=== PATIENT | female | born 1975 | race Caucasian/White ===

== ENCOUNTER → 2016-08-31 | Day surgery (SDC) | payer OTHER ==
[~2016-08-31] VITALS: Ht 170.2 cm; Wt 82.0 kg
[~2016-08-31] MED LIST: AMLO10 PO; AMLO10TA2 PO; CARV25TA PO; CORE25TA PO; DILA4TAB2 PO; DO NOT ADM ANY ANTICOAGULANT DRUGS XX PRN; GEOD80CA PO; HALO5TAB PO; IBUP200T2 PO; INSULIN HUMAN REGULAR 1,000 UNITS/10 ML VIAL SQ PRN; LACTATED RINGER'S 1000 ML INJ 1,000 ML IV ONE; LACTATED RINGER'S 1000 ML IV SCH; METOPROLOL TARTRATE 25 MG TAB PO PRN; MIDAZOLAM HCL 2 MG/2 ML VIAL ONE; ONDANSETRON HCL 4 MG/2 ML VIAL IV PUSH ONE; ONDANSETRON HCL 4 MG/2 ML VIAL IV PUSH PRN; PERC5TAB12 PO; PHENYLEPH/NS 1000 MCG/10 ML SYR IV ONE; PROPOFOL 200 MG/20 ML AMP IV ONE; SODIUM CHLORID 0.9% 500 ML IV SCH; TRIH2 PO; ePHEDrine/NS 50 MG/5 ML SYR IV ONE; oxyCODONE/ACETAMINOPHEN 5 MG/325 MG TAB PO PRN
[2016-08-31 10:03] VITALS: BP 107/79; PULSE 79; RESP 16; TEMP 98.2; O2SAT 98
[2016-08-31 10:17] LABS: AUTOMATED NEUTROPHIL # 9.3 TH/MM3 (1.8-7.7); BASOPHIL # 0.1 TH/MM3 (0-0.2); BASOPHIL % 0.7 % (0.0-2.0); EOSINOPHIL # 0.4 TH/MM3 (0-0.4); EOSINOPHIL % 3.1 % (0.0-4.0); HEMATOCRIT 38.6 % (35.0-46.0); HEMO FLAGS DIFF FINAL; LYMPHOCYTE # 2.3 TH/MM3 (1.0-4.8); MEAN CELL VOLUME 85.7 FL (80.0-100.0); MEAN CORPUSCULAR HEMOGLOBIN 29.7 PG (27.0-34.0); MEAN CORPUSCULAR HGB CONC 34.7 % (32.0-36.0); MONO % 5.3 % (0.0-8.0); NEUT % 72.9 % (16.0-70.0); PLATELET COUNT 316 TH/MM3 (150-450); RED BLOOD COUNT 4.51 MIL/MM3 (4.00-5.30); RED CELL DISTRIBUTION WIDTH 13.9 % (11.6-17.2); WHITE BLOOD COUNT 12.8 TH/MM3 (4.0-11.0)
--- NOTE | 2016-08-31 10:26 | RADRPT ---
EXAM DATE/TIME: 08/31/2016 09:36 [place] COMPARISON: CT ABDOMEN & PELVIS W/O CONTRAST, July 11, 2016, 12:32. INDICATIONS : Pre op left lithotripsy. MEDICAL HISTORY : Hypertension. Renal calculi. SURGICAL HISTORY : None. ENCOUNTER: Initial ACUITY: 1 day PAIN SCORE: 0/10 LOCATION: Left flank FINDINGS: A 14 mm oblong calcific density overlies the left kidney. No other suspicious calcific densities are identified. Intestinal gas pattern is nonspecific and benign. The regional skeleton is intact. CONCLUSION: Left kidney stone Obie Eaton MD on August 31, 2016 at 10:22 Board Certified Radiologist. This report was verified electronically.
--- NOTE | 2016-08-31 12:51 | MP ---
cc: YANG LOPEZ MD DATE OF SURGERY: August 31, 2016 INDICATIONS FOR PROCEDURE Case of a pleasant 41-year-old female with approximately 1 and 1/2 cm left lower pole renal calculus who presents today to undergo extracorporeal shockwave lithotripsy. PREOPERATIVE DIAGNOSIS Left renal calculus. POSTOPERATIVE DIAGNOSIS Left renal calculus. ATTENDING SURGEON Dr. Lopez. ANESTHESIA General. OPERATIVE PROCEDURE IN DETAIL The patient was brought to the operating room suite and placed supine on the OR table. The patient was next placed under general anesthesia. After an appropriate time-out was undertaken the patient had a left lower pole renal calculus localized with fluoroscopy. She subsequently received extracorporeal shockwave lithotripsy using the [employer] Piezolith 3000 device. The patient ended up receiving a total of 3000 shocks with a maximum power level setting of 20. At the conclusion of the procedure the stone did break up well. The patient tolerated the procedure without complications and was transferred to the PACU in satisfactory condition. Yang Lopez MD BPS/TLL /12:39 PM /12:44 PM
[2016-08-31 13:15] VITALS: BP 106/65; PULSE 68; RESP 18; TEMP 97.8; O2SAT 97
== END | disposition home or self-care (01) ==
LOC: HSDC 09:16
PROVIDERS: ATTEND Urology
DX: N20.0 Calculus of kidney (principal); I10 Essential (primary) hypertension; Z01.818 Encounter for other preprocedural examination
CPT/HCPCS: 00872; 50590; 74000; 85025; J2250; J2370; J2405; J3010; J7120

== ENCOUNTER 2017-01-15 12:00 | Emergency (ER) | payer OTHER ==
[~2017-01-15] VITALS: Ht 162.6 cm; Wt 60.0 kg
[~2017-01-15 12:00] MED LIST changes: -AMLO10 PO; -CARV25TA PO; -DILA4TAB2 PO; -DO NOT ADM ANY ANTICOAGULANT DRUGS XX PRN; -GEOD80CA PO; -HALO5TAB PO; -INSULIN HUMAN REGULAR 1,000 UNITS/10 ML VIAL SQ PRN; -LACTATED RINGER'S 1000 ML INJ 1,000 ML IV ONE; -LACTATED RINGER'S 1000 ML IV SCH; -METOPROLOL TARTRATE 25 MG TAB PO PRN; -MIDAZOLAM HCL 2 MG/2 ML VIAL ONE; -ONDANSETRON HCL 4 MG/2 ML VIAL IV PUSH ONE; -ONDANSETRON HCL 4 MG/2 ML VIAL IV PUSH PRN; -PERC5TAB12 PO; -PHENYLEPH/NS 1000 MCG/10 ML SYR IV ONE; -PROPOFOL 200 MG/20 ML AMP IV ONE; -SODIUM CHLORID 0.9% 500 ML IV SCH; -TRIH2 PO; -ePHEDrine/NS 50 MG/5 ML SYR IV ONE; -oxyCODONE/ACETAMINOPHEN 5 MG/325 MG TAB PO PRN
[2017-01-15 12:05] VITALS: BP 170/92; PULSE 102; RESP 22
[2017-01-15 12:40] LABS: AUTOMATED NEUTROPHIL # 8.5 TH/MM3 (1.8-7.7); BASOPHIL # 0.1 TH/MM3 (0-0.2); BASOPHIL % 0.9 % (0.0-2.0); EOSINOPHIL # 0.2 TH/MM3 (0-0.4); EOSINOPHIL % 1.2 % (0.0-4.0); HEMO FLAGS DIFF FINAL; LYMPH % 24.2 % (9.0-44.0); LYMPHOCYTE # 3.1 TH/MM3 (1.0-4.8); MEAN CELL VOLUME 85.9 FL (80.0-100.0); MEAN CORPUSCULAR HEMOGLOBIN 29.3 PG (27.0-34.0); MEAN CORPUSCULAR HGB CONC 34.1 % (32.0-36.0); MONO % 7.7 % (0.0-8.0); PLATELET COUNT 326 TH/MM3 (150-450); RED BLOOD COUNT 4.65 MIL/MM3 (4.00-5.30); RED CELL DISTRIBUTION WIDTH 13.7 % (11.6-17.2); WHITE BLOOD COUNT 12.9 TH/MM3 (4.0-11.0)
[2017-01-15] MEDS ORDERED: HALOPERIDOL LACTATE 5 MG/ML AMP IM ONE (12:45)
[2017-01-15] MEDS ORDERED: LORazepam 2 MG/ML VIAL IM ONE (12:45)
[2017-01-15 12:51] LABS: AMPHETAMINE, URINE NEG (NEG); BARBITURATES, URINE NEG (NEG); COCAINE, URINE NEG (NEG)
[2017-01-15 12:58] LABS: ALT (GPT) 24 U/L (10-53); ANION GAP 12 MEQ/L (5-15); AST (GOT) 23 U/L (15-37); BICARBONATE 22.7 MEQ/L (21.0-32.0); BLOOD UREA NITROGEN 17 MG/DL (7-18); CHLORIDE 108 MEQ/L (98-107); GLOMERULAR FILTRATION RATE 103 ML/MIN (>89); POTASSIUM 3.4 MEQ/L (3.5-5.1); SODIUM (NA) 143 MEQ/L (136-145)
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
[2017-01-15 13:00] LABS: ALKALINE PHOSPHATASE 73 U/L (45-117); TOTAL BILIRUBIN ADULT 0.7 MG/DL (0.2-1.0)
[2017-01-15 14:00] VITALS: BP 164/74; PULSE 92; RESP 18; O2SAT 96
[2017-01-15 14:55] VITALS: BP 120/86; PULSE 86; RESP 18; TEMP 97.9; O2SAT 96
[2017-01-15] MEDS ORDERED: diphenhydrAMINE HCL 50 MG CAP PO ONE (15:30)
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
[2017-01-15] MEDS ORDERED: OLANZapine 10 MG TAB PO ONE (15:45)
[2017-01-15] MEDS ORDERED: LORazepam 2 MG TAB PO ONE (17:00)
[2017-01-15 22:07] VITALS: BP 129/75; PULSE 95; RESP 17; O2SAT 95
[2017-01-15] MEDS ORDERED: diphenhydrAMINE HCL 50 MG/ML VIAL IM ONE (22:30)
[2017-01-16 00:16] LABS: BETA HCG QUANT LESS THAN 1 MIU/ML (0-5)
[2017-01-17] MEDS ORDERED: AMLO10TA2 PO (17:03)
[2017-01-17] MEDS ORDERED: IBUP200T2 PO (17:04)
[2017-01-17] MEDS ORDERED: CARV25TA PO (17:04)
== END 2017-01-16 00:35 ==
LOC: NEDAMB 12:00 → NEPJ 01-16 00:35
DX: F29 Unspecified psychosis not due to a substance or known physiological condition (principal); I10 Essential (primary) hypertension; F17.200 Nicotine dependence, unspecified, uncomplicated; Z86.59 Personal history of other mental and behavioral disorders; Z87.442 Personal history of urinary calculi
CPT/HCPCS: 80053; 80307; 84702; 85025; 96372; 99285; J1200; J1630; J2060; Q0163

== ENCOUNTER 2017-01-17 13:10 | Inpatient (IN) | payer OTHER ==
[~2017-01-17] VITALS: Ht 170.2 cm; Wt 77.0 kg
[2017-01-17 13:18] VITALS: BP 129/69; PULSE 88; RESP 24; TEMP 97.8; O2SAT 100
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
[2017-01-17] MEDS ORDERED: LORazepam 1 MG TAB PO ONE (14:00)
[2017-01-17 14:04] LABS: AUTOMATED NEUTROPHIL # 9.1 TH/MM3 (1.8-7.7); BASOPHIL # 0.1 TH/MM3 (0-0.2); BASOPHIL % 0.6 % (0.0-2.0); EOSINOPHIL # 0.3 TH/MM3 (0-0.4); HEMATOCRIT 37.5 % (35.0-46.0); HEMO FLAGS DIFF FINAL; LYMPH % 22.3 % (9.0-44.0); MEAN CELL VOLUME 85.6 FL (80.0-100.0); MEAN CORPUSCULAR HEMOGLOBIN 29.1 PG (27.0-34.0); MONO % 7.8 % (0.0-8.0); NEUT % 67.3 % (16.0-70.0); PLATELET COUNT 295 TH/MM3 (150-450); RED BLOOD COUNT 4.38 MIL/MM3 (4.00-5.30); RED CELL DISTRIBUTION WIDTH 13.9 % (11.6-17.2); WHITE BLOOD COUNT 13.6 TH/MM3 (4.0-11.0)
[2017-01-17 14:25] LABS: AMPHETAMINE, URINE NEG (NEG); BARBITURATES, URINE NEG (NEG); COCAINE, URINE NEG (NEG)
[2017-01-17 14:25] LABS: ALT (GPT) 34 U/L (10-53); ANION GAP 10 MEQ/L (5-15); AST (GOT) 48 U/L (15-37); BICARBONATE 23.7 MEQ/L (21.0-32.0); BLOOD UREA NITROGEN 17 MG/DL (7-18); CHLORIDE 108 MEQ/L (98-107); GLOMERULAR FILTRATION RATE 97 ML/MIN (>89); POTASSIUM 3.6 MEQ/L (3.5-5.1); SODIUM (NA) 142 MEQ/L (136-145)
[2017-01-17] MEDS ORDERED: HALOPERIDOL LACTATE 5 MG/ML AMP IM ONE (14:30)
[2017-01-17] MEDS ORDERED: NICOTINE 21 MG/24 HR PATCH T-DERMAL ONE (14:30)
[2017-01-17 14:33] LABS: ALKALINE PHOSPHATASE 70 U/L (45-117); TOTAL BILIRUBIN ADULT 0.7 MG/DL (0.2-1.0)
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
[2017-01-17] MEDS ORDERED: LORazepam 2 MG/ML VIAL ONE (15:56)
[2017-01-17] MEDS ORDERED: LORazepam 2 MG/ML VIAL IM ONE (16:15)
[2017-01-17 16:52] VITALS: BP 101/58; PULSE 83; RESP 18; O2SAT 98
[2017-01-17] MEDS ORDERED: AMLO10TA2 PO (17:03)
[2017-01-17] MEDS ORDERED: CARV25TA PO (17:04)
[2017-01-17] MEDS ORDERED: IBUP200T2 PO (17:04)
[2017-01-17] MEDS ORDERED: BENZTROPINE MESYLATE 1 MG TAB PO PRN (21:00)
[2017-01-17] MEDS ORDERED: BENZTROPINE MESYLATE 2 MG/2 ML VIAL IM PRN (21:00)
[2017-01-17] MEDS: CARVEDILOL 12.5 MG TAB PO SCH (21:00)
[2017-01-17 22:31] VITALS: BP 181/84; PULSE 93; RESP 18; O2SAT 98
[2017-01-17] MEDS: NICOTINE 21 MG/24 HR PATCH T-DERMAL SCH (22:34)
[2017-01-17] MEDS: diphenhydrAMINE HCL 50 MG CAP PO PRN (22:51)
[2017-01-17] MEDS: LORazepam 2 MG/ML VIAL IM PRN (22:51)
[2017-01-17 23:26] VITALS: BP 111/67; PULSE 89; RESP 18; TEMP 98.6; O2SAT 96
[2017-01-18] MEDS: LORazepam 1 MG TAB PO PRN ×2 (04:33→11:09)
[2017-01-18 05:59] VITALS: BP 131/81; PULSE 81; RESP 17; TEMP 98.1; O2SAT 99
[2017-01-18 08:36] LABS: BASOPHIL # 0.1 TH/MM3 (0-0.2); BASOPHIL % 1.1 % (0.0-2.0); EOSINOPHIL # 0.3 TH/MM3 (0-0.4); HEMATOCRIT 36.9 % (35.0-46.0); HEMO FLAGS DIFF FINAL; LYMPH % 24.1 % (9.0-44.0); LYMPHOCYTE # 2.7 TH/MM3 (1.0-4.8); MEAN CELL VOLUME 86.1 FL (80.0-100.0); MEAN CORPUSCULAR HEMOGLOBIN 29.4 PG (27.0-34.0); MEAN CORPUSCULAR HGB CONC 34.2 % (32.0-36.0); MONO % 8.4 % (0.0-8.0); NEUT % 63.4 % (16.0-70.0); PLATELET COUNT 300 TH/MM3 (150-450); RED BLOOD COUNT 4.29 MIL/MM3 (4.00-5.30); RED CELL DISTRIBUTION WIDTH 13.4 % (11.6-17.2); WHITE BLOOD COUNT 11.1 TH/MM3 (4.0-11.0)
[2017-01-18] MEDS: CARVEDILOL 12.5 MG TAB PO SCH ×2 (09:00→21:00)
[2017-01-18] MEDS: REMOVE OLD PATCH T-DERMAL SCH (09:00)
[2017-01-18] MEDS: NICOTINE 21 MG/24 HR PATCH T-DERMAL SCH (10:14)
[2017-01-18 10:18] LABS: ANION GAP 7 MEQ/L (5-15); AST (GOT) 40 U/L (15-37); BICARBONATE 25.1 MEQ/L (21.0-32.0); BLOOD UREA NITROGEN 17 MG/DL (7-18); CHLORIDE 106 MEQ/L (98-107); GLOMERULAR FILTRATION RATE 109 ML/MIN (>89); POTASSIUM 3.6 MEQ/L (3.5-5.1); SODIUM (NA) 138 MEQ/L (136-145)
[2017-01-18 10:30] LABS: ALKALINE PHOSPHATASE 64 U/L (45-117); ALT (GPT) 34 U/L (10-53); LDL CHOLESTEROL 103 MG/DL (0-99); TOTAL BILIRUBIN ADULT 0.5 MG/DL (0.2-1.0)
[2017-01-18] MEDS ORDERED: OLANZapine ODT 5 MG TAB PO ONE (11:00)
[2017-01-18] MEDS ORDERED: OLANZapine IM 10 MG VIAL IM PRN (11:00)
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
[2017-01-18] MEDS ORDERED: LORazepam 2 MG/ML VIAL IM ONE (14:00)
[2017-01-18] MEDS ORDERED: diphenhydrAMINE HCL 50 MG/ML VIAL IM ONE (14:00)
[2017-01-18] MEDS ORDERED: HALOPERIDOL LACTATE 5 MG/ML AMP IM STA (14:02)
[2017-01-18 15:00] VITALS: BP 120/75; PULSE 87; RESP 17; O2SAT 97
[2017-01-18 15:53] LABS: HEMOGLOBIN A1a 0.9 %; HEMOGLOBIN A1b 1.4 %; HEMOGLOBIN Ao 86.3 %; HEMOGLOBIN LA1C 1.9 %; HEMOGLOBIN P3 5.1 %
[2017-01-18 17:20] VITALS: BP 117/73; PULSE 75; RESP 14; O2SAT 99
[2017-01-18 18:08] VITALS: BP 145/78; PULSE 75; RESP 18; TEMP 98.5; O2SAT 99
[2017-01-18] MEDS: OLANZapine ODT 10 MG TAB PO SCH (21:00)
[2017-01-19] MEDS: diphenhydrAMINE HCL 50 MG CAP PO PRN ×2 (01:30→20:10)
[2017-01-19] MEDS: LORazepam 1 MG TAB PO PRN ×4 (01:30→20:10)
[2017-01-19] MEDS: OLANZapine ODT 10 MG TAB PO SCH ×2 (01:30→20:09)
[2017-01-19] MEDS: ACETAMINOPHEN 325 MG TAB PO PRN ×3 (01:30→20:10)
[2017-01-19] MEDS: MAGNESIUM HYDROXIDE SUSP 30 ML CUP PO PRN (04:57)
[2017-01-19 06:04] VITALS: BP 119/75; PULSE 78; RESP 17; TEMP 98.1; O2SAT 98
[2017-01-19] MEDS: NICOTINE 21 MG/24 HR PATCH T-DERMAL SCH (08:20)
[2017-01-19] MEDS: CARVEDILOL 12.5 MG TAB PO SCH ×2 (08:20→20:10)
[2017-01-19] MEDS: REMOVE OLD PATCH T-DERMAL SCH (09:00)
--- NOTE | 2017-01-19 13:11 | HHI.PYPN ---
Subjective Remarks Patient seen and examined with nurse, Akila. Chart reviewed. Patient required Haldol, Ativan and Benadryl ETO yesterday for agitation. Case discussed with nursing staff who reports that the patient is attention seeking. On my examination today, the patient presents as somewhat silly, disinhibited and intrusive. Affect is labile. She is quite discharge focused. She is accusatory and continues to catastrophize. She does not think that she has a mental illness in need of treatment. Claims that medications received yesterday made her "hallucinate" but otherwise reports no side effects from medications. No physical complaints at this time. Review of Systems ROS Limitations: Poor Historian Except as stated in HPI: all other systems reviewed are Neg Objective Alert: Yes [place]: Person, Place, Date (approx) Mood: Anxious Affect: Labile Memory Intact: Comment (Not formally assessed) Hallucinations: Other (Claims AVH overnight, none now) Delusions: Yes Delusion Type: Grandiose Suicidal: Ideation (No SI) Homicidal: Ideation (No HI) Insight/Judgment Poor Remarks No motoric abnormalities noted. Speech somewhat pressured, rambling. TP perhaps a little more linear today. Labs Labs reviewed. Vitals/IOs Vital Signs Date Time Temp Pulse Resp B/P Pulse Ox O2 Delivery O2 Flow Rate FiO2 01/19/17 06:04 98.1 78 17 119/75 98 01/17/17 22:31 Room Air Assessment & Plan Problem List: (1) Bipolar disorder ICD Code: F31.9 Assessment & Plan Continue Zyprexa 10mg qHS with plans to titrate to 15mg tomorrow night. To consider addition of a mood stabilizer for acute stabilization. Continue to monitor on inpatient unit. Continue other medications and care as ordered. Justification for Cont. Inpt. Medication changes in progress. High risk for decompensation in a less restrictive environment. Discharge Planning Pending psychiatric stabilization. Patient has made clear that she does not want to return to her mother in [place]. Request HC Surrog/Guard Advoc?: Yes Problem Qualifiers (1) Bipolar disorder: Qualified Code: F31.2 - Bipolar affective disorder, currently manic, severe, with psychotic features Mauri Bishop MD Jan 19, 2017 13:11
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
[2017-01-19 15:20] VITALS: BP 142/66; PULSE 81; RESP 18; TEMP 98.4; O2SAT 99
[2017-01-20 00:05] VITALS: BP 110/72; PULSE 72; RESP 18; TEMP 98; O2SAT 98
[2017-01-20] MEDS: LORazepam 1 MG TAB PO PRN ×2 (05:25→21:21)
[2017-01-20] MEDS: ACETAMINOPHEN 325 MG TAB PO PRN ×2 (05:26→11:16)
[2017-01-20 05:30] VITALS: BP 118/76; PULSE 80; RESP 18; TEMP 97.3; TEMP 98.1; O2SAT 97
[2017-01-20] MEDS: CARVEDILOL 12.5 MG TAB PO SCH ×2 (08:25→21:48)
[2017-01-20] MEDS: NICOTINE 21 MG/24 HR PATCH T-DERMAL SCH (08:27)
[2017-01-20] MEDS: REMOVE OLD PATCH T-DERMAL SCH (09:00)
--- NOTE | 2017-01-20 10:18 | HHI.PYPN ---
Subjective Remarks Patient seen and examined with counselor. Chart reviewed. Case discussed with nursing staff reports the patient as somewhat manipulative and instigating other patients. She presented a list of demands to nursing staff including a request for a meditation area with a [place] pond. On my examination today, the patient is somewhat distractible and disinhibited. Thought process is more linear with less loosening of associations. No AVH or other rajiv psychotic symptoms. No SI or HI voiced. Denies side effects from medications. On her menses and requesting Midol for this per nursing staff but no other physical complaints. Review of Systems ROS Limitations: Poor Historian Except as stated in HPI: all other systems reviewed are Neg Objective Alert: Yes [place]: Person, Place, Date Mood: Anxious Affect: Labile (less so) Memory Intact: Comment (Not formally assessed) Hallucinations: Other (no audiovisual hallucinations) Delusions: No Delusion Type: Other (no rajiv delusions) Suicidal: Ideation (no suicidal ideation) Homicidal: Ideation (no homicidal ideation) Insight/Judgment Poor Remarks No abnormal motor movements noted. Thought process somewhat more linear. Speech continues to be a little pressured but this is improved versus admission. Grooming and hygiene fair. Labs Labs reviewed. No new labs. Vitals/IOs Vital Signs Date Time Temp Pulse Resp B/P Pulse Ox O2 Delivery O2 Flow Rate FiO2 01/20/17 05:30 98.1 80 18 118/76 97 01/17/17 22:31 Room Air Assessment & Plan Problem List: (1) Bipolar disorder ICD Code: F31.9 Assessment & Plan Titrate Zyprexa to 15mg qHS for mood stabilization. Pt agreeable to this change. Continue other medications as ordered. Continue other care as ordered. Transfer to [facility] unit. Justification for Cont. Inpt. Medication changes and process. High risk for decompensation in a less restrictive environment. Discharge Planning Possible discharge sometime next week. Patient now says that she is agreeable to going to [place] to be with her mother but only temporarily. She also provides contact number for a friend, Bria, , and I have asked that a counselor to obtain collateral from Bria. Request HC Surrog/Guard Advoc?: Yes Problem Qualifiers (1) Bipolar disorder: Qualified Code: F31.2 - Bipolar affective disorder, currently manic, severe, with psychotic features Mauri Bishop MD Jan 20, 2017 10:18
[2017-01-20] MEDS: IBUPROFEN 600 MG TAB PO PRN ×2 (15:39→21:21)
[2017-01-20 17:16] VITALS: BP 155/84; PULSE 84; RESP 18; TEMP 98.1; O2SAT 99
[2017-01-20] MEDS: OLANZapine ODT 15 MG TAB PO SCH (21:17)
[2017-01-20] MEDS: ALUMINUM/MAGNESIUM/SIMETH 30 ML CUP PO PRN (21:21)
[2017-01-21 06:18] VITALS: BP 131/73; PULSE 82; RESP 17; TEMP 98; O2SAT 100
[2017-01-21] MEDS: MAGNESIUM HYDROXIDE SUSP 30 ML CUP PO PRN (08:09)
[2017-01-21] MEDS: IBUPROFEN 600 MG TAB PO PRN ×2 (08:10→14:32)
[2017-01-21] MEDS: NICOTINE 21 MG/24 HR PATCH T-DERMAL SCH (08:39)
[2017-01-21] MEDS: CARVEDILOL 12.5 MG TAB PO SCH ×2 (08:39→21:28)
[2017-01-21] MEDS: REMOVE OLD PATCH T-DERMAL SCH (08:42)
[2017-01-21] MEDS: LORazepam 1 MG TAB PO PRN ×3 (09:35→23:23)
--- NOTE | 2017-01-21 16:00 | HHI.PYPN ---
Subjective Remarks Pt seen and discussed with staff. She remains intrusive with poor insight, requiring frequent redirection. She states that she does not want to take medication but is only doing it to get out of the hospital on Monday. She denies SI/HI. Objective Alert: Yes [place]: Person, Place, Date Mood: Other (manic) Affect: Labile Memory Intact: Comment (fair) Hallucinations: Other (no audiovisual hallucinations) Delusions: No Delusion Type: Other (no rajiv delusions) Suicidal: Ideation (no suicidal ideation) Homicidal: Ideation (no homicidal ideation) Insight/Judgment poor Vitals/IOs Vital Signs Date Time Temp Pulse Resp B/P Pulse Ox O2 Delivery O2 Flow Rate FiO2 01/21/17 06:18 98.0 82 17 131/73 100 01/17/17 22:31 Room Air Assessment & Plan Problem List: (1) Bipolar disorder ICD Code: F31.9 Assessment & Plan Pt improving. Continue current tx plan. Estimated LOS: days Justification for Cont. Inpt. impairments in social functioning due to kwame Request HC Surrog/Guard Advoc?: Yes Problem Qualifiers (1) Bipolar disorder: Qualified Code: F31.2 - Bipolar affective disorder, currently manic, severe, with psychotic features Ryann Santana MD Jan 21, 2017 16:00
[2017-01-21 18:32] VITALS: BP 131/65; PULSE 70; RESP 17; TEMP 97.9; O2SAT 100
[2017-01-21] MEDS: OLANZapine ODT 15 MG TAB PO SCH (21:29)
[2017-01-21] MEDS: diphenhydrAMINE HCL 50 MG CAP PO PRN (21:31)
[2017-01-22] MEDS: IBUPROFEN 600 MG TAB PO PRN ×2 (04:12→13:37)
[2017-01-22 06:27] VITALS: BP 129/80; PULSE 71; RESP 16; TEMP 98; O2SAT 99
[2017-01-22] MEDS: CARVEDILOL 12.5 MG TAB PO SCH ×2 (08:27→19:52)
[2017-01-22] MEDS: NICOTINE 21 MG/24 HR PATCH T-DERMAL SCH (09:00)
[2017-01-22] MEDS: REMOVE OLD PATCH T-DERMAL SCH (09:00)
[2017-01-22] MEDS: LORazepam 1 MG TAB PO PRN ×2 (13:36→19:50)
--- NOTE | 2017-01-22 18:14 | HHI.PYPN ---
Subjective Remarks Pt seen and discussed with staff. She remains intrusive and delusional. She was upset and insisted to staff that she was having a miscarriage. (HCG negative) Later pt states that "It was just my period. I don't know what happened. I'm feeling manic and getting crazy thoughts." No SI/HI SHe is compliant with medication but states that she hates it and doesn't think that she needs it. Objective Alert: Yes [place]: Person, Place, Date Mood: Other (manic) Affect: Labile Memory Intact: Comment (fair) Hallucinations: Other (no audiovisual hallucinations) Delusions: No Delusion Type: Other (no rajiv delusions) Suicidal: Ideation (no suicidal ideation) Homicidal: Ideation (no homicidal ideation) Insight/Judgment poor Vitals/IOs Vital Signs Date Time Temp Pulse Resp B/P Pulse Ox O2 Delivery O2 Flow Rate FiO2 01/22/17 06:27 98.0 71 16 129/80 99 Assessment & Plan Problem List: (1) Bipolar disorder ICD Code: F31.9 Assessment & Plan Continue current tx plan. Estimated LOS: days Justification for Cont. Inpt. impairments in reality testing and social functioning Request HC Surrog/Guard Advoc?: Yes Problem Qualifiers (1) Bipolar disorder: Qualified Code: F31.2 - Bipolar affective disorder, currently manic, severe, with psychotic features Ryann Santana MD Jan 22, 2017 18:14
[2017-01-22 18:22] VITALS: BP 155/82; PULSE 82; RESP 16; TEMP 98.8; O2SAT 99
[2017-01-22] MEDS: diphenhydrAMINE HCL 50 MG CAP PO PRN (19:52)
[2017-01-22] MEDS: OLANZapine ODT 15 MG TAB PO SCH (19:52)
[2017-01-22] MEDS: ACETAMINOPHEN 325 MG TAB PO PRN (20:10)
[2017-01-23] MEDS: LORazepam 1 MG TAB PO PRN ×4 (04:01→20:55)
[2017-01-23] MEDS: MAGNESIUM HYDROXIDE SUSP 30 ML CUP PO PRN (04:19)
[2017-01-23 06:27] VITALS: BP 126/76; PULSE 86; RESP 17; TEMP 98; O2SAT 97
[2017-01-23] MEDS: CARVEDILOL 12.5 MG TAB PO SCH ×2 (08:31→20:19)
[2017-01-23] MEDS: REMOVE OLD PATCH T-DERMAL SCH (08:32)
[2017-01-23] MEDS: NICOTINE 21 MG/24 HR PATCH T-DERMAL SCH (08:32)
--- NOTE | 2017-01-23 11:41 | HHI.PYPN ---
Subjective Remarks Patient seen in room with nurse Tiffany counselor Jennifer. Patient quite labile from related to tearful, with marked pressured speech. No insight into her disease. Stating the medicine she would like to take his Ativan. She also did acknowledge noncompliance of medication for a significant period of time. Per review of patient's behavior she has been disruptive of the unit causing difficulty with other patients also. At this point feel patient is not really responding to the Zyprexa. We'll discontinue the Zyprexa will start Geodon 60 mg by mouth twice a day and if patient refuses that 10 mg IM in its place Review of Systems Except as stated in HPI: all other systems reviewed are Neg Objective Alert: Yes [place]: Person, Place, Date Mood: Other (manic) Affect: Labile Memory Intact: Comment (fair) Hallucinations: Other (no audiovisual hallucinations) Delusions: No Delusion Type: Other (no rajiv delusions) Suicidal: Ideation (no suicidal ideation) Homicidal: Ideation (no homicidal ideation) Insight/Judgment Very poor Vitals/IOs Vital Signs Date Time Temp Pulse Resp B/P Pulse Ox O2 Delivery O2 Flow Rate FiO2 01/23/17 06:27 98.0 86 17 126/76 97 Intake and Output 01/22/17 01/22/17 01/22/17 07:59 15:59 23:59 Intake Total 1000 ml Balance 1000 ml Assessment & Plan Problem List: (1) Bipolar disorder ICD Code: F31.9 Assessment & Plan Estimated LOS: days patient continues manic intense and intrusive with no insight. She medication adjustments above Justification for Cont. Inpt. At this time patient will decompensate if placed in a lower level of care Discharge Planning To be determined Request HC Surrog/Guard Advoc?: Yes Problem Qualifiers (1) Bipolar disorder: Qualified Code: F31.2 - Bipolar affective disorder, currently manic, severe, with psychotic features Obie Salinas MD Jan 23, 2017 11:41
[2017-01-23] MEDS: ZIPRASIDONE MESYLATE 20 MG VIAL IM SCH ×2 (11:45→17:03)
[2017-01-23] MEDS: ZIPRASIDONE HCL 60 MG CAP PO SCH ×2 (12:00→20:17)
--- NOTE | 2017-01-23 14:28 | PD.TTN ---
Present for Treatment Team Treatment Team Staff: Provider, Nurse, Psych Therapist Patient Problems 1. Discharge planning 2. Medication compliance 3. Knowledge deficit 4. Lack of coping skills Progress Toward Goals Provider Input: Dr. Salinas's treatment team met to discuss patient's treatment plan, medication, and discharge. Per Dr. Salinas patient medication will be increased. A injection is being considered. If patient continues to be distruptive on unit patient may be transferred to unit 2700. Nurse Input: Patient's nurse Tiffany reported patient is medication compliant, labile, agitated, causing disruption on unit Psych Therapist Input: Patient's is very agitated, labile, crying, anger, exit seeking. Patient made fair eye contact. Patient's speech is clear, pressured with rambling. Patient denies suicidal and homicidal ideation. Patient has poor insight into her situation. Patient is medication compliant. Patient does not present internally stimulated but patient presents very delusional. Patient is hypoagitated Jennifer Ferrer RMI Jan 23, 2017 14:28
[2017-01-23 16:00] VITALS: BP 130/60; PULSE 76; RESP 18; TEMP 98.3; O2SAT 99
[2017-01-23] MEDS: diphenhydrAMINE HCL 50 MG CAP PO PRN (20:18)
[2017-01-24] MEDS: MAGNESIUM HYDROXIDE SUSP 30 ML CUP PO PRN (04:19)
[2017-01-24] MEDS: IBUPROFEN 600 MG TAB PO PRN (04:19)
[2017-01-24] MEDS: LORazepam 1 MG TAB PO PRN ×3 (04:39→18:52)
[2017-01-24] MEDS: ZIPRASIDONE HCL 60 MG CAP PO SCH ×2 (08:38→20:01)
[2017-01-24] MEDS: CARVEDILOL 12.5 MG TAB PO SCH ×2 (08:38→19:51)
[2017-01-24] MEDS: NICOTINE 21 MG/24 HR PATCH T-DERMAL SCH (08:39)
[2017-01-24] MEDS: REMOVE OLD PATCH T-DERMAL SCH (08:39)
--- NOTE | 2017-01-24 08:41 | HHI.PYPN ---
Subjective Remarks Patient seen in day room with floor staff, chart review, patient so far compliant with her Geodon. Patient continues markedly intrusive intense divisive and splitting. Her speech continues rapid and pressured markedly tangential circumstantial and at times somewhat paranoid.. She states she does not want to go back home with her family, she lists a local friend and a cousin here in [place]. For now continue treatment Review of Systems Except as stated in HPI: all other systems reviewed are Neg Objective Alert: Yes [place]: Person, Place, Date Mood: Agitated, Other (manic) Affect: Labile Memory Intact: Comment (fair) Hallucinations: Other (no audiovisual hallucinations) Delusions: No Delusion Type: Other (no rajiv delusions) Suicidal: Ideation (no suicidal ideation) Homicidal: Ideation (no homicidal ideation) Insight/Judgment Very poor Vitals/IOs Vital Signs Date Time Temp Pulse Resp B/P Pulse Ox O2 Delivery O2 Flow Rate FiO2 01/23/17 16:00 98.3 76 18 130/60 99 Assessment & Plan Problem List: (1) Bipolar disorder ICD Code: F31.9 Assessment & Plan Estimated LOS: days patient continues manic, paranoid divisive and splinting. Compliant medications. For now continue treatment Justification for Cont. Inpt. At this time patient will decompensate if placed in the lower level of care Discharge Planning To be determined Request HC Surrog/Guard Advoc?: Yes Problem Qualifiers (1) Bipolar disorder: Qualified Code: F31.2 - Bipolar affective disorder, currently manic, severe, with psychotic features Obie Salinas MD Jan 24, 2017 08:41
[2017-01-24] MEDS: ZIPRASIDONE MESYLATE 20 MG VIAL IM SCH (09:00)
[2017-01-24] MEDS ORDERED: ZIPRASIDONE MESYLATE 20 MG VIAL IM PRN (17:15)
[2017-01-24 18:03] VITALS: BP 106/63; PULSE 102; RESP 18; TEMP 97.8; O2SAT 98
[2017-01-24] MEDS: diphenhydrAMINE HCL 50 MG CAP PO PRN (19:50)
[2017-01-25] MEDS: LORazepam 2 MG/ML VIAL IM PRN (00:46)
[2017-01-25] MEDS ORDERED: diphenhydrAMINE HCL 50 MG/ML VIAL ONE (01:39)
[2017-01-25] MEDS ORDERED: diphenhydrAMINE HCL 50 MG/ML VIAL IM ONE (01:45)
[2017-01-25] MEDS ORDERED: ZIPRASIDONE MESYLATE 20 MG VIAL IM ONE (01:45)
[2017-01-25] MEDS: IBUPROFEN 600 MG TAB PO PRN (01:50)
[2017-01-25] MEDS: ALUMINUM/MAGNESIUM/SIMETH 30 ML CUP PO PRN (05:29)
[2017-01-25 05:58] VITALS: BP 145/85; PULSE 77; RESP 18; TEMP 97; O2SAT 98
[2017-01-25] MEDS ORDERED: HALOPERIDOL LACTATE 5 MG/ML AMP IM STA (08:14)
[2017-01-25] MEDS ORDERED: LORazepam 2 MG/ML VIAL IM STA (08:14)
[2017-01-25] MEDS ORDERED: diphenhydrAMINE HCL 50 MG/ML VIAL IM STA (08:14)
[2017-01-25] MEDS ORDERED: HALOPERIDOL LACTATE 5 MG/ML AMP ONE (08:15)
[2017-01-25] MEDS: REMOVE OLD PATCH T-DERMAL SCH (09:00)
[2017-01-25] MEDS: NICOTINE 21 MG/24 HR PATCH T-DERMAL SCH (09:14)
[2017-01-25] MEDS: CARVEDILOL 12.5 MG TAB PO SCH ×2 (09:15→20:10)
[2017-01-25] MEDS: ZIPRASIDONE HCL 60 MG CAP PO SCH (09:15)
--- NOTE | 2017-01-25 14:42 | HHI.PYPN ---
Subjective Remarks Patient seen in her room with nurse Rocio. Chart reviewed. Patient continues to make threatening behaviors statements gestures towards other significantly mentally ill volatile patients on the unit. This led to her receiving medically necessary injection of Haldol Ativan and Benadryl earlier today.. At this time Will also adjust the Geodon to 80 mg by mouth twice a day, and if she refuses it [address] IM [address] its place. Patient also schedule for [address] [facility] tomorrow. I attempted to discuss the procedures in [place] [address] associate professor of music refused to listen and left her room later passing me in the meyer and saying "thanks a lot" counselor is also been in communication patient's family there hoping that she will stabilize the point where they can safely transport her within back to [place]. Review of Systems Except as stated in HPI: all other systems reviewed are Neg Objective Alert: Yes [place]: Person, Place, Date Mood: Agitated, Other (manic) Affect: Labile Memory Intact: Comment (fair) Hallucinations: Other (no audiovisual hallucinations) Delusions: No Delusion Type: Other (no rajiv delusions) Suicidal: Ideation (no suicidal ideation) Homicidal: Ideation (no homicidal ideation) Insight/Judgment Very poor Vitals/IOs Vital Signs Date Time Temp Pulse Resp B/P Pulse Ox O2 Delivery O2 Flow Rate FiO2 01/25/17 05:58 97.0 77 18 145/85 98 Assessment & Plan Problem List: (1) Bipolar disorder ICD Code: F31.9 Assessment & Plan Estimated LOS: days patient continues manic intrusive delusional, with marked staff splitting and intrusive intimidating behavior towards other patients, this necessitated the use of a medically necessary injection this morning, patient scheduled for [place] tomorrow Justification for Cont. Inpt. At this time patient will decompensate the placed in a lower level of care Discharge Planning To be determined Request HC Surrog/Guard Advoc?: Yes Problem Qualifiers (1) Bipolar disorder: Qualified Code: F31.2 - Bipolar affective disorder, currently manic, severe, with psychotic features Obie Salinas MD Jan 25, 2017 14:42
[2017-01-25] MEDS ORDERED: ZIPRASIDONE MESYLATE 20 MG VIAL IM PRN (14:45)
[2017-01-25 18:11] VITALS: BP 132/65; PULSE 71; RESP 18; TEMP 98; O2SAT 99
[2017-01-25] MEDS: LORazepam 1 MG TAB PO PRN (18:24)
[2017-01-25] MEDS: ZIPRASIDONE HCL 80 MG CAP PO SCH (20:10)
[2017-01-26] MEDS: LORazepam 1 MG TAB PO PRN ×4 (02:48→21:12)
[2017-01-26 06:06] VITALS: BP 130/87; PULSE 75; RESP 17; TEMP 97.6; O2SAT 100
[2017-01-26] MEDS: CARVEDILOL 12.5 MG TAB PO SCH ×2 (08:41→20:25)
[2017-01-26] MEDS: ZIPRASIDONE HCL 80 MG CAP PO SCH ×2 (08:42→20:25)
[2017-01-26] MEDS: NICOTINE 21 MG/24 HR PATCH T-DERMAL SCH (08:44)
[2017-01-26] MEDS: REMOVE OLD PATCH T-DERMAL SCH (08:56)
--- NOTE | 2017-01-26 15:09 | HHI.PYPN ---
Subjective Remarks Patient seen in [place]. Patient retained by Household Appliance Mechanic Juan with patient's [id number] guardian advocate. Patient showed marked lability going from grandiosity to sobbing tearfulness very quickly. Continues to be irritable on the unit intrusive with staff splitting. Patient has been compliant with her medication. Review of Systems Except as stated in HPI: all other systems reviewed are Neg Objective Alert: Yes [place]: Person, Place, Date Mood: Agitated, Other (manic) Affect: Labile Memory Intact: Comment (fair) Hallucinations: Other (no audiovisual hallucinations) Delusions: No Delusion Type: Other (no rajiv delusions) Suicidal: Ideation (no suicidal ideation) Homicidal: Ideation (no homicidal ideation) Insight/Judgment Very poor Vitals/IOs Vital Signs Date Time Temp Pulse Resp B/P Pulse Ox O2 Delivery O2 Flow Rate FiO2 01/26/17 06:06 97.6 75 17 130/87 100 Assessment & Plan Problem List: (1) Bipolar disorder ICD Code: F31.9 Assessment & Plan Estimated LOS: days patient remains markedly manic intrusive with psychotic features. Is been reluctantly compliant with medications. Appears in [place] was retained with [id number] guardian advocate Justification for Cont. Inpt. At this time patient will decompensate with place to the lower level of care Discharge Planning To be determined Request HC Surrog/Guard Advoc?: Yes Problem Qualifiers (1) Bipolar disorder: Qualified Code: F31.2 - Bipolar affective disorder, currently manic, severe, with psychotic features Obie Salinas MD Jan 26, 2017 15:09
[2017-01-26 15:55] VITALS: BP 117/58; PULSE 70; RESP 20; TEMP 98; O2SAT 100
[2017-01-26] MEDS: diphenhydrAMINE HCL 50 MG CAP PO PRN (20:27)
[2017-01-27] MEDS: ACETAMINOPHEN 325 MG TAB PO PRN (06:07)
[2017-01-27 06:17] VITALS: BP 130/93; PULSE 80; RESP 16; TEMP 98.1; O2SAT 96
[2017-01-27] MEDS: LORazepam 1 MG TAB PO PRN ×2 (06:40→15:16)
[2017-01-27] MEDS: NICOTINE 21 MG/24 HR PATCH T-DERMAL SCH (09:00)
[2017-01-27] MEDS: REMOVE OLD PATCH T-DERMAL SCH (09:00)
[2017-01-27] MEDS: CARVEDILOL 12.5 MG TAB PO SCH ×2 (09:23→19:58)
[2017-01-27] MEDS: ZIPRASIDONE HCL 80 MG CAP PO SCH (09:23)
--- NOTE | 2017-01-27 10:00 | HHI.PYPN ---
Subjective Remarks Patient seen in her room with nurse Mayte, patient continues labile quite volatile irritable paranoid and somewhat manipulative with me. Continues to show no insight into her disease. Stating that I am not responsible for her pet dog being driven up to [place] by her girlfriend. She then stormed out of her room saying "thanks a lot". Will increase oral Geodon to 120 mg twice a day since patient continues quite manic with psychotic features Review of Systems Except as stated in HPI: all other systems reviewed are Neg Objective Alert: Yes [place]: Person, Place, Date Mood: Agitated, Other (manic) Affect: Labile Memory Intact: Comment (fair) Hallucinations: Other (no audiovisual hallucinations) Delusions: No Delusion Type: Other (no rajiv delusions) Suicidal: Ideation (no suicidal ideation) Homicidal: Ideation (no homicidal ideation) Insight/Judgment Very poor Vitals/IOs Vital Signs Date Time Temp Pulse Resp B/P Pulse Ox O2 Delivery O2 Flow Rate FiO2 01/27/17 06:17 98.1 80 16 130/93 96 Assessment & Plan Problem List: (1) Bipolar disorder ICD Code: F31.9 Assessment & Plan Estimated LOS: days patient continues manic with psychotic features, no insight. Will increase Geodon to 120 mg twice a day Justification for Cont. Inpt. At this point patient will decompensate if placed in a lower level of care Discharge Planning To be determined Request HC Surrog/Guard Advoc?: Yes Problem Qualifiers (1) Bipolar disorder: Qualified Code: F31.2 - Bipolar affective disorder, currently manic, severe, with psychotic features Obie Salinas MD Jan 27, 2017 09:59
[2017-01-27 17:00] VITALS: BP 107/57; PULSE 80; RESP 16; TEMP 97.9; O2SAT 96
[2017-01-27] MEDS: ZIPRASIDONE HCL 60 MG CAP PO SCH (19:59)
[2017-01-28] MEDS: ACETAMINOPHEN 325 MG TAB PO PRN (04:49)
[2017-01-28 05:37] VITALS: BP 120/78; PULSE 75; RESP 18; TEMP 98; O2SAT 98
[2017-01-28] MEDS: REMOVE OLD PATCH T-DERMAL SCH (09:00)
[2017-01-28] MEDS: ZIPRASIDONE HCL 60 MG CAP PO SCH ×2 (09:14→21:05)
[2017-01-28] MEDS: LORazepam 1 MG TAB PO PRN ×3 (09:15→23:11)
[2017-01-28] MEDS: CARVEDILOL 12.5 MG TAB PO SCH ×2 (09:15→21:05)
[2017-01-28] MEDS: NICOTINE 21 MG/24 HR PATCH T-DERMAL SCH (09:15)
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
[2017-01-28 18:01] VITALS: BP 164/93; PULSE 90; RESP 18; TEMP 98.6; O2SAT 97
[2017-01-28] MEDS: MAGNESIUM HYDROXIDE SUSP 30 ML CUP PO PRN (21:03)
[2017-01-29 06:15] VITALS: BP 120/72; PULSE 63; RESP 18; TEMP 98.4; O2SAT 99
[2017-01-29] MEDS: CARVEDILOL 12.5 MG TAB PO SCH ×2 (08:52→20:05)
[2017-01-29] MEDS: ZIPRASIDONE HCL 60 MG CAP PO SCH ×2 (08:53→20:07)
[2017-01-29] MEDS: LORazepam 1 MG TAB PO PRN ×3 (08:53→23:30)
[2017-01-29] MEDS: NICOTINE 21 MG/24 HR PATCH T-DERMAL SCH (08:59)
[2017-01-29] MEDS: REMOVE OLD PATCH T-DERMAL SCH (09:00)
[2017-01-29] MEDS: IBUPROFEN 600 MG TAB PO PRN ×2 (12:42→23:30)
--- NOTE | 2017-01-29 13:57 | HHI.PYPN ---
Subjective Remarks Patient was seen and case discussed with nursing. Patient is more cooperative with interview today. She is less labile and more organized. Less attention seeking. She once a therapy and did well and there per nursing. His been writing goals for the future. Is no longer arguing with her mother slamming the phone. Objective Alert: Yes [place]: Person, Place, Date Mood: Oppositional Affect: Labile Memory Intact: Comment (fair) Hallucinations: Other (would not answer) Delusions: No Delusion Type: Other (no rajiv delusions) Suicidal: Ideation (no suicidal ideation) Homicidal: Ideation (no homicidal ideation) Insight/Judgment Poor Vitals/IOs Vital Signs Date Time Temp Pulse Resp B/P Pulse Ox O2 Delivery O2 Flow Rate FiO2 01/29/17 06:15 98.4 63 18 120/72 99 Assessment & Plan Problem List: (1) Bipolar disorder ICD Code: F31.9 Assessment & Plan Continue current treatment plan Justification for Cont. Inpt. Patient will decompensate in a less restrictive setting Request HC Surrog/Guard Advoc?: Yes Problem Qualifiers (1) Bipolar disorder: Qualified Code: F31.2 - Bipolar affective disorder, currently manic, severe, with psychotic features Aman Hogan DO Jan 29, 2017 13:57
[2017-01-29 18:01] VITALS: BP 130/63; PULSE 87; RESP 17; TEMP 97.4; O2SAT 97
[2017-01-30 06:01] VITALS: BP 108/68; PULSE 77; RESP 20; TEMP 98; O2SAT 98
[2017-01-30] MEDS: IBUPROFEN 600 MG TAB PO PRN (06:22)
[2017-01-30] MEDS: LORazepam 1 MG TAB PO PRN ×3 (07:34→21:52)
[2017-01-30] MEDS: CARVEDILOL 12.5 MG TAB PO SCH ×2 (08:43→21:52)
[2017-01-30] MEDS: NICOTINE 21 MG/24 HR PATCH T-DERMAL SCH (08:45)
[2017-01-30] MEDS: REMOVE OLD PATCH T-DERMAL SCH (09:00)
[2017-01-30] MEDS: ZIPRASIDONE HCL 60 MG CAP PO SCH (09:57)
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
[2017-01-30] MEDS: ACETAMINOPHEN 325 MG TAB PO PRN ×2 (13:51→21:52)
--- NOTE | 2017-01-30 15:47 | PD.TTN ---
Present for Treatment Team Treatment Team Staff: Provider (Dr. Salinas), Nurse, Psych Therapist (Jonathan filling in for Surekha), Occupational Therapist (Sera) Patient Problems 1. Discharge planning 2. Medication compliance 3. Knowledge deficit 4. Lack of coping skills Progress Toward Goals Provider Input: No comment from Dr. Salinas Psych Therapist Input: Jennifer stating pt remains intrusive. Family is "on board" with tx plan, and there is an ongoing concern that pt will "run off" upon discharge. Occupational Therapist Input: Pt attends the group activities. Pt is intrusive an needs constant redirection. Jonathan Valiente Jr, PITCHING COACH Jan 30, 2017 15:47
[2017-01-30 18:04] VITALS: BP 131/79; PULSE 80; RESP 17; TEMP 98.1; O2SAT 98
[2017-01-30] MEDS: ZIPRASIDONE HCL 80 MG CAP PO SCH (21:53)
[2017-01-31 06:38] VITALS: BP 117/78; PULSE 70; RESP 16; TEMP 98; O2SAT 98
[2017-01-31] MEDS: REMOVE OLD PATCH T-DERMAL SCH (08:59)
[2017-01-31] MEDS: ZIPRASIDONE HCL 80 MG CAP PO SCH ×2 (08:59→16:53)
[2017-01-31] MEDS: NICOTINE 21 MG/24 HR PATCH T-DERMAL SCH (08:59)
[2017-01-31] MEDS: CARVEDILOL 12.5 MG TAB PO SCH ×2 (09:00→21:27)
[2017-01-31] MEDS: LORazepam 1 MG TAB PO PRN ×3 (10:00→23:00)
--- NOTE | 2017-01-31 12:27 | HHI.PYPN ---
Subjective Remarks Patient seen today with floor staff, patient and a room showing me behavior she has written telling me that she is now in affect on alcohol and marijuana and that she wishes to do a sober living situation. She continues somewhat vague with her acceptance of her mental illness. She then stated that she wants a new guardian advocate because her present guardian advocate is killing her dog. She then got quite upset when I did a caregiver specific date for her discharge. She continued upset when I would not discharge her and allow him a bus pass to go to the [facility]. I reiterated the fact that her family will come down and help relocate to the [facility] reduction get outpatient mental health services. She then got up and stormed out of her room. She is compliant with her medications. States she feels like she is "slowing down" I told her that is a good thing at this time. She also caused her to become upset Review of Systems Except as stated in HPI: all other systems reviewed are Neg Objective Alert: Yes [place]: Person, Place, Date Mood: Oppositional Affect: Labile Memory Intact: Comment (fair) Hallucinations: Other (would not answer) Delusions: No Delusion Type: Other (no rajiv delusions) Suicidal: Ideation (no suicidal ideation) Homicidal: Ideation (no homicidal ideation) Insight/Judgment Very poor Vitals/IOs Vital Signs Date Time Temp Pulse Resp B/P Pulse Ox O2 Delivery O2 Flow Rate FiO2 01/31/17 06:38 98.0 70 16 117/78 98 Intake and Output 01/30/17 01/30/17 01/31/17 08:00 16:00 00:00 Intake Total 360 ml Balance 360 ml Assessment & Plan Problem List: (1) Bipolar disorder ICD Code: F31.9 Assessment & Plan Estimated LOS: days patient remains manic delusional and grandiose, showing no insight. We'll compliant medications for now continue treatment Justification for Cont. Inpt. At this time patient will decompensate the placed in a lower level of care Discharge Planning To be determined Request HC Surrog/Guard Advoc?: Yes Problem Qualifiers (1) Bipolar disorder: Qualified Code: F31.2 - Bipolar affective disorder, currently manic, severe, with psychotic features Obie Salinas MD Jan 31, 2017 12:26
[2017-01-31] MEDS: IBUPROFEN 600 MG TAB PO PRN (15:00)
[2017-01-31 18:00] VITALS: BP 116/63; PULSE 76; RESP 20; TEMP 98.1; O2SAT 99
[2017-01-31] MEDS: ACETAMINOPHEN 325 MG TAB PO PRN (18:40)
[2017-01-31] MEDS: diphenhydrAMINE HCL 50 MG CAP PO PRN (21:30)
[2017-02-01] MEDS: LORazepam 1 MG TAB PO PRN ×3 (04:13→23:38)
[2017-02-01] MEDS: MAGNESIUM HYDROXIDE SUSP 30 ML CUP PO PRN (05:53)
[2017-02-01 06:01] VITALS: BP 116/68; PULSE 70; RESP 16; TEMP 97.7; O2SAT 96
[2017-02-01] MEDS: REMOVE OLD PATCH T-DERMAL SCH (09:00)
[2017-02-01] MEDS: ZIPRASIDONE HCL 80 MG CAP PO SCH ×2 (09:04→18:00)
[2017-02-01] MEDS: NICOTINE 21 MG/24 HR PATCH T-DERMAL SCH (09:04)
[2017-02-01] MEDS: CARVEDILOL 12.5 MG TAB PO SCH ×2 (09:04→21:11)
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
[2017-02-01] MEDS: HALOPERIDOL 5 MG TAB PO SCH ×2 (13:00→21:11)
[2017-02-01] MEDS ORDERED: HALOPERIDOL LACTATE 5 MG/ML AMP IM PRN (13:00)
[2017-02-01 17:54] VITALS: BP 126/67; PULSE 80; RESP 16; TEMP 98.5; O2SAT 98
[2017-02-01] MEDS: ALUMINUM/MAGNESIUM/SIMETH 30 ML CUP PO PRN (20:14)
[2017-02-02 06:29] VITALS: BP 116/63; PULSE 71; RESP 16; TEMP 97.9
[2017-02-02] MEDS: NICOTINE 21 MG/24 HR PATCH T-DERMAL SCH (08:16)
[2017-02-02] MEDS: ZIPRASIDONE HCL 80 MG CAP PO SCH (08:16)
[2017-02-02] MEDS: HALOPERIDOL 5 MG TAB PO SCH ×2 (08:17→21:28)
[2017-02-02] MEDS: CARVEDILOL 12.5 MG TAB PO SCH ×2 (08:17→21:26)
[2017-02-02] MEDS: REMOVE OLD PATCH T-DERMAL SCH (08:17)
--- NOTE | 2017-02-02 12:46 | HHI.PYPN ---
Subjective Remarks Patient seen in her room with nurse sabina, chart reviewed. Patients affect is somewhat softer, decrease grandiose mild increase dysphoric. Though there is still somewhat of a "trauma post" attitude with her. Patient states she's having blurred vision and vague muscle jumping at night since the Haldol was initiated. Though staff states patient slept quietly all night without a problem. We will order Artane 2 mg at at bedtime. For now continue treatment patient remains somewhat stable and cooperative of the weekend consider contacting patient's family to arrange for them to come down here to transfer patient back with him to [place] Review of Systems Except as stated in HPI: all other systems reviewed are Neg Objective Alert: Yes [place]: Person, Place, Date Mood: Oppositional Affect: Labile Memory Intact: Comment (fair) Hallucinations: Other (would not answer) Delusions: No Delusion Type: Other (no rajiv delusions) Suicidal: Ideation (no suicidal ideation) Homicidal: Ideation (no homicidal ideation) Insight/Judgment Poor Vitals/IOs Vital Signs Date Time Temp Pulse Resp B/P Pulse Ox O2 Delivery O2 Flow Rate FiO2 02/02/17 06:29 97.9 71 16 116/63 02/01/17 17:54 98 Intake and Output 02/01/17 02/01/17 02/02/17 08:00 16:00 00:00 Intake Total 720 ml 480 ml Balance 720 ml 480 ml Assessment & Plan Problem List: (1) Bipolar disorder ICD Code: F31.9 Assessment & Plan Estimated LOS: days patient kwame is resolving though she showing some mild dysphoria at this time. Patient compliant medications. Let Artane 2 mg at bedtime to regimen Justification for Cont. Inpt. At this time patient will decompensate if placed in a lower level of care Discharge Planning To be determined Request HC Surrog/Guard Advoc?: Yes Problem Qualifiers (1) Bipolar disorder: Qualified Code: F31.2 - Bipolar affective disorder, currently manic, severe, with psychotic features Obie Salinas MD Feb 02, 2017 12:46
[2017-02-02] MEDS: IBUPROFEN 600 MG TAB PO PRN (14:20)
[2017-02-02] MEDS: LORazepam 1 MG TAB PO PRN ×2 (14:20→22:46)
[2017-02-02 16:00] VITALS: BP 129/75; PULSE 75; RESP 17; TEMP 97.8; O2SAT 98
[2017-02-02] MEDS ORDERED: ZIPRASIDONE HCL 80 MG CAP PO ONE (18:00)
[2017-02-02] MEDS ORDERED: ZIPRASIDONE HCL 80 MG CAP PO SCH (18:00)
[2017-02-02] MEDS: TRIHEXYPHENIDYL HCL 2 MG TAB PO SCH (21:26)
[2017-02-02] MEDS: diphenhydrAMINE HCL 50 MG CAP PO PRN (21:34)
[2017-02-03 06:27] VITALS: BP 111/75; PULSE 75; RESP 16; TEMP 98.7; O2SAT 99
[2017-02-03] MEDS: REMOVE OLD PATCH T-DERMAL SCH (09:00)
[2017-02-03] MEDS: CARVEDILOL 12.5 MG TAB PO SCH ×2 (09:31→21:12)
[2017-02-03] MEDS: HALOPERIDOL 5 MG TAB PO SCH ×2 (09:31→21:13)
[2017-02-03] MEDS: NICOTINE 21 MG/24 HR PATCH T-DERMAL SCH (09:33)
--- NOTE | 2017-02-03 10:50 | HHI.PYPN ---
Subjective Remarks Patient seen in room with nurse and counselor Alyx. Patients pressured speech is decrease in her irritability paranoia decreasing. She showing some processing of the reality of her going to the family to [place] first part of next week. She now requests been taken off of phone restrictions. I will allow that it would be good to see if she can maintain self-control. Patient also requests we take him off the vegetarian diet and put back on a regular diet I will do that also. Patient otherwise compliant with the medications. States she slept well last night for the first time. Denies suicidality homicidality voices or visions. For now continue treatment Review of Systems Except as stated in HPI: all other systems reviewed are Neg Objective Alert: Yes [place]: Person, Place, Date Mood: Oppositional Affect: Labile Memory Intact: Comment (fair) Hallucinations: Other (would not answer) Delusions: No Delusion Type: Other (no rajiv delusions) Suicidal: Ideation (no suicidal ideation) Homicidal: Ideation (no homicidal ideation) Insight/Judgment Poor Vitals/IOs Vital Signs Date Time Temp Pulse Resp B/P Pulse Ox O2 Delivery O2 Flow Rate FiO2 02/03/17 06:27 98.7 75 16 111/75 99 Assessment & Plan Problem List: (1) Bipolar disorder ICD Code: F31.9 Assessment & Plan Estimated LOS: days patient mood is starting to stabilize, she is more appropriate in her responses and requests will consider contacting family Monday with possible discharge first part of next week to her family Justification for Cont. Inpt. At this time patient will decompensate the placed a lower level of care Discharge Planning To be determined Request HC Surrog/Guard Advoc?: Yes Problem Qualifiers (1) Bipolar disorder: Qualified Code: F31.2 - Bipolar affective disorder, currently manic, severe, with psychotic features Obie Salinas MD Feb 03, 2017 10:50
[2017-02-03] MEDS: LORazepam 1 MG TAB PO PRN ×2 (15:47→21:58)
[2017-02-03] MEDS: ZIPRASIDONE HCL 80 MG CAP PO SCH (17:14)
[2017-02-03 19:14] VITALS: BP 123/65; PULSE 76; RESP 18; TEMP 98.2; O2SAT 97
[2017-02-03] MEDS: TRIHEXYPHENIDYL HCL 2 MG TAB PO SCH (21:12)
[2017-02-03] MEDS: IBUPROFEN 600 MG TAB PO PRN (21:13)
[2017-02-03] MEDS: diphenhydrAMINE HCL 50 MG CAP PO PRN (21:13)
[2017-02-04 06:15] VITALS: BP 91/20; PULSE 62; RESP 18; TEMP 98; O2SAT 97
[2017-02-04] MEDS: HALOPERIDOL 5 MG TAB PO SCH ×2 (08:36→21:31)
[2017-02-04] MEDS: NICOTINE 21 MG/24 HR PATCH T-DERMAL SCH (08:36)
[2017-02-04] MEDS: CARVEDILOL 12.5 MG TAB PO SCH ×2 (08:36→21:31)
[2017-02-04] MEDS: REMOVE OLD PATCH T-DERMAL SCH (09:00)
--- NOTE | 2017-02-04 14:27 | HHI.PYPN ---
Subjective Remarks Patient was seen and case discussed with nursing. Per nursing patient continues to be hyperverbal and intrusive. For my interview she remains elevated but pleasant. Mood is "pretty good." She is looking forward to discharge next week. Sleeping 8 hours per nursing.. Socializing with others no outbursts or labile mood Objective Alert: Yes [place]: Person, Place, Date Mood: Calm Affect: Other (elevated) Memory Intact: Comment (fair) Hallucinations: Other (denies) Delusions: No Delusion Type: Other (no rajiv delusions) Suicidal: Ideation (no suicidal ideation) Homicidal: Ideation (no homicidal ideation) Insight/Judgment Improving Vitals/IOs Vital Signs Date Time Temp Pulse Resp B/P Pulse Ox O2 Delivery O2 Flow Rate FiO2 02/04/17 06:15 98.0 62 18 91/20 97 Intake and Output 02/03/17 02/03/17 02/04/17 08:00 16:00 00:00 Intake Total 480 ml Balance 480 ml Assessment & Plan Problem List: (1) Bipolar disorder ICD Code: F31.9 Assessment & Plan Continue current treatment plan Justification for Cont. Inpt. Patient will decompensate in a less restrictive setting Request HC Surrog/Guard Advoc?: Yes Problem Qualifiers (1) Bipolar disorder: Qualified Code: F31.2 - Bipolar affective disorder, currently manic, severe, with psychotic features Aman Hogan DO Feb 04, 2017 14:27
[2017-02-04] MEDS: IBUPROFEN 600 MG TAB PO PRN (14:36)
[2017-02-04] MEDS: LORazepam 1 MG TAB PO PRN (14:36)
[2017-02-04] MEDS: ZIPRASIDONE HCL 80 MG CAP PO SCH (16:55)
[2017-02-04 18:06] VITALS: BP 120/66; PULSE 74; RESP 18; TEMP 98.5; O2SAT 98
[2017-02-04] MEDS: TRIHEXYPHENIDYL HCL 2 MG TAB PO SCH (21:31)
[2017-02-05 05:44] VITALS: BP 114/67; PULSE 65; RESP 18; TEMP 98.3; O2SAT 97
[2017-02-05] MEDS: ACETAMINOPHEN 325 MG TAB PO PRN ×2 (07:29→14:52)
[2017-02-05] MEDS: HALOPERIDOL 5 MG TAB PO SCH ×2 (08:43→21:00)
[2017-02-05] MEDS: CARVEDILOL 12.5 MG TAB PO SCH ×2 (08:43→21:00)
[2017-02-05] MEDS: NICOTINE 21 MG/24 HR PATCH T-DERMAL SCH (08:44)
[2017-02-05] MEDS: REMOVE OLD PATCH T-DERMAL SCH (08:47)
--- NOTE | 2017-02-05 13:49 | HHI.PYPN ---
Subjective Remarks Patient was seen and case discussed with nursing. Per nursing patient continues to improve. She has not had any outbursts. During the interview thought process is more logical and organized. Affect is anxious. Tolerating her medications well. She is preoccupied with the new patient called her his girlfriend and she was asked to stay close with her one-to-one. Objective Alert: Yes [place]: Person, Place, Date Mood: Calm Affect: Other (less elevated) Memory Intact: Comment (fair) Hallucinations: Other (denies) Delusions: No Delusion Type: Other (no rajiv delusions) Suicidal: Ideation (no suicidal ideation) Homicidal: Ideation (no homicidal ideation) Insight/Judgment Improving Vitals/IOs Vital Signs Date Time Temp Pulse Resp B/P Pulse Ox O2 Delivery O2 Flow Rate FiO2 02/05/17 05:44 98.3 65 18 114/67 97 Assessment & Plan Problem List: (1) Bipolar disorder ICD Code: F31.9 Assessment & Plan Continue current treatment plan Justification for Cont. Inpt. Patient will decompensate in a less restrictive setting Request HC Surrog/Guard Advoc?: Yes Problem Qualifiers (1) Bipolar disorder: Qualified Code: F31.2 - Bipolar affective disorder, currently manic, severe, with psychotic features Aman Hogan DO Feb 05, 2017 13:49
[2017-02-05] MEDS: LORazepam 1 MG TAB PO PRN ×2 (15:17→21:01)
[2017-02-05 15:35] VITALS: BP 140/82; PULSE 89; RESP 18; TEMP 98.9; O2SAT 98
[2017-02-05 16:35] LABS: BACTERIA, URINE RARE /hpf; BLOOD, URINE NEG (NEG); COMMENT (UR) CULT NOT INDICATED; CULTURE IF INDICATED CULT NOT INDICATED; GLUCOSE,URINE NEG (NEG); KETONE, URINE NEG (NEG); MUCUS URINE FEW /lpf (OCC); NITRITE,URINE NEG (NEG); SQUAMOUS EPITHELIAL CELL URINE <1 /hpf (0-5); URINE COLOR LIGHT-YELLOW (YELLW/STRAW)
[2017-02-05] MEDS: ZIPRASIDONE HCL 80 MG CAP PO SCH (17:47)
[2017-02-05] MEDS: ALUMINUM/MAGNESIUM/SIMETH 30 ML CUP PO PRN (18:13)
[2017-02-05] MEDS: IBUPROFEN 600 MG TAB PO PRN (21:00)
[2017-02-05] MEDS: TRIHEXYPHENIDYL HCL 2 MG TAB PO SCH (21:00)
[2017-02-06 06:18] VITALS: BP 106/65; PULSE 70; RESP 18; TEMP 97.1; O2SAT 96
[2017-02-06] MEDS: LORazepam 1 MG TAB PO PRN (07:26)
[2017-02-06] MEDS: ACETAMINOPHEN 325 MG TAB PO PRN (07:27)
[2017-02-06] MEDS: REMOVE OLD PATCH T-DERMAL SCH (08:45)
[2017-02-06] MEDS: CARVEDILOL 12.5 MG TAB PO SCH (08:45)
[2017-02-06] MEDS: NICOTINE 21 MG/24 HR PATCH T-DERMAL SCH (08:45)
[2017-02-06] MEDS: HALOPERIDOL 5 MG TAB PO SCH (08:45)
[2017-02-06] MEDS ORDERED: GEOD80CA PO (10:43)
[2017-02-06] MEDS ORDERED: HALO5TAB PO (10:43)
[2017-02-06] MEDS ORDERED: AMLO10 PO (10:43)
[2017-02-06] MEDS ORDERED: CORE25TA PO (10:43)
[2017-02-06] MEDS ORDERED: TRIH2 PO (10:43)
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
== END 2017-02-06 12:35 | disposition home or self-care (01) | DRG 885 ==
LOC: NEPD 13:10 → NEDA 20:51 → H270 23:10 → H260 01-20 11:10 → H270 01-23 22:23 → H260 01-27 20:05
PROVIDERS: ADMIT Psychiatry & Neurology Psychiatry; ATTEND Psychiatry & Neurology Psychiatry
DX: F31.12 Bipolar disorder, current episode manic without psychotic features, moderate (principal); Z91.120 Patient's intentional underdosing of medication regimen due to financial hardship; I10 Essential (primary) hypertension; T43.596A Underdosing of other antipsychotics and neuroleptics, initial encounter; F12.90 Cannabis use, unspecified, uncomplicated; F17.210 Nicotine dependence, cigarettes, uncomplicated
CPT/HCPCS: 80053; 80061; 80307; 81001; 83036; 84443; 84703; 85025; 96372; J1200; J1630; J2060; J3486; Q0163